=== PATIENT | male | born 1995 | race Caucasian/White ===

== ENCOUNTER 2023-04-10 17:53 | Emergency (ER) | payer OTHER ==
[~2023-04-10] VITALS: Ht 175.3 cm; Wt 65.9 kg
[2023-04-10 17:56] VITALS: BP 109/71; PULSE 73; RESP 12; O2SAT 100
[2023-04-10] MEDS ORDERED: TETanus/Pertussis (Acell)/Diphther VAC/PF (Tdap-Adult) 0.5ml syringe IMVAC ONE (21:40)
== END 2023-04-10 22:09 | disposition home or self-care (01) ==
LOC: ER 17:54
DX: S61.217A Laceration without foreign body of left little finger without damage to nail, initial encounter (principal); W45.8XXA Other foreign body or object entering through skin, initial encounter; Y93.89 Activity, other specified; Y92.89 Other specified places as the place of occurrence of the external cause; Y99.8 Other external cause status
CPT/HCPCS: 12001; 90471; 90715; 99283